=== PATIENT | male | born 1970 | race Caucasian/White ===

== ENCOUNTER 2024-03-16 16:10 | Inpatient (IN) ==
[2024-03-16] MEDS: ZOSYN VIAL 3.375 GRAMS 3.375 G in NS 100 ML IV 100 ML IV SCH ×2 (17:52→21:26)
[2024-03-16] MEDS ORDERED: ZOFRAN INJ 4 MG VIAL IVP PRN (17:57)
[2024-03-16 18:14] VITALS: BMI 27.6
[2024-03-16] MEDS: D5 1/2 NS 1,000 ML 1,000 ML IV SCH (18:31)
[2024-03-16 20:07] LABS: BLOOD UREA NITROGEN 10 mg/dL (7-18); CALCIUM 8.3 mg/dL (8.5-10.1); CARBON DIOXIDE 23.5 mmol/L (21-32); CHLORIDE 101 mmol/L (98-107); COR NA(FOR HYPERGLY) 140 mmol/L (136-145); CREATININE 1.26 mg/dL (0.70-1.30); GLUCOSE 167 mg/dL (65-99); POTASSIUM 3.9 mmol/L (3.5-5.1); SODIUM 138 mmol/L (136-145); eGFR NON BLACK RACES > 60 (>60)
[2024-03-16] MEDS ORDERED: ZOSYN VIAL 3.375 GRAMS 3.375 G in NS 100 ML IV 100 ML IV ONE (21:00)
[2024-03-16] MEDS: DILAUDID INJ IVP PRN (21:16)
[2024-03-16] MEDS: NS 250 ML IV 25 ML IV PRN (21:19)
--- NOTE | 2024-03-16 21:56 | EKG ---
Test Reason : Surgical Clearance Blood Pressure : */* mmHG Vent. Rate : 77 BPM Atrial Rate : 77 BPM P-R Int : 146 ms QRS Dur : 90 ms QT Int : 356 ms P-R-T Axes : 49 8 8 degrees QTc Int : 402 ms Normal sinus rhythm Normal ECG No previous ECGs available Confirmed by Imtiaz Hidalgo ([id number]) on 03/17/2024 10:16:24 AM Referred By: Confirmed By: Imtiaz Hidalgo
[2024-03-17] MEDS: HIBICLENS WASH EXT ONE (05:54)
[2024-03-17] MEDS: NOZIN NASAL SANITIZER TP ONE (06:16)
[2024-03-17] MEDS: ZOSYN VIAL 3.375 GRAMS IV ONE (07:19)
[2024-03-17] MEDS: NS 100 ML IV 100 ML ONE ×2 (07:19→10:56)
[2024-03-17] MEDS: PROTONIX INJ 40 MG VIAL IVP ONE (09:02)
[2024-03-17 09:03] LABS: BASOPHILS % (AUTO) 0.1 % (0.2-1.0); EOSINOPHILS % (AUTO) 0.5 % (0.9-2.9); HEMATOCRIT 42.5 % (42.0-54.0); HEMOGLOBIN 14.3 g/dL (13.5-18.0); LYMPHOCYTES # (AUTO) 1.3 X10^3/uL (1.3-2.9); LYMPHOCYTES % (AUTO) 14.2 % (21.0-51.0); MEAN CORPUSCULAR HEMOGLOBIN 29.3 pg (27.0-34.0); MEAN CORPUSCULAR HGB CONC 33.6 g/dL (33.0-35.0); MEAN CORPUSCULAR VOLUME 87.3 fL (80.0-100.0); MONOCYTES % (AUTO) 11.2 % (0.0-13.0); NEUTROPHILS # (AUTO) 6.7 x10^3/uL (2.2-4.8); PLATELET COUNT 136 X10^3/uL (150.0-450.0); RED BLOOD COUNT 4.86 X10^6/uL (4.7-6.0); RED CELL DISTRIBUTION WIDTH 13.7 % (11.6-16.5)
[2024-03-17 09:11] LABS: ALANINE AMINOTRANSFERASE 104 Units/L (12-78); ALBUMIN 3.2 g/dL (3.4-5.0); ALKALINE PHOSPHATASE 64 Units/L (46-116); ASPARTATE AMINO TRANSFERASE 60 Units/L (15-37); BLOOD UREA NITROGEN 8 mg/dL (7-18); CALCIUM 8.2 mg/dL (8.5-10.1); CARBON DIOXIDE 25.4 mmol/L (21-32); CHLORIDE 105 mmol/L (98-107); COR CA(FOR HYPOALB) 8.8 mg/dL (8.5-10.1); COR NA(FOR HYPERGLY) 138 mmol/L (136-145); GLUCOSE 130 mg/dL (65-99); POTASSIUM 3.7 mmol/L (3.5-5.1); SODIUM 137 mmol/L (136-145); TOTAL PROTEIN 6.9 g/dL (6.4-8.2); eGFR NON BLACK RACES > 60 (>60)
[2024-03-17] MEDS: BACTROBAN TOPICAL OINT ONE (09:32)
[2024-03-17] MEDS: LR 1,000 ML IV 1,000 ML IV ONE (10:56)
[2024-03-17] MEDS: ANCEF VIAL 1 GRAM ONE (10:56)
[2024-03-17] MEDS: PRECEDEX INJ VIAL ONE (11:03)
[2024-03-17] MEDS ORDERED: ULTANE GAS IN ONE (11:03)
[2024-03-17] MEDS: DILAUDID INJ ONE (11:03)
[2024-03-17] MEDS: ZOFRAN INJ 4 MG VIAL ONE (11:03)
[2024-03-17] MEDS: PEPCID 20 MG VIAL ONE (11:03)
[2024-03-17] MEDS: VERSED ONE (11:03)
[2024-03-17] MEDS: DIPRIVAN VIAL 20 ML ONE (11:03)
[2024-03-17] MEDS: ZEMURON 100 MG VIAL ONE (11:03)
[2024-03-17] MEDS: DECADRON INJ ONE (11:03)
[2024-03-17] MEDS: ROBINUL ONE (11:03)
[2024-03-17] MEDS: NEO-SYNEPHRINE INJ ONE (11:16)
[2024-03-17] MEDS: BRIDION ONE (12:06)
[2024-03-17] MEDS ORDERED: REGLAN INJ 10 MG VIAL IVP PRN (12:39)
[2024-03-17] MEDS ORDERED: DILAUDID INJ IVP PRN (12:39)
[2024-03-17] MEDS ORDERED: BARHEMSYS INJ IVP PRN (12:39)
[2024-03-17] MEDS ORDERED: BENADRYL INJ 50 MG VIAL IVP PRN (12:39)
[2024-03-17] MEDS ORDERED: ZOFRAN INJ 4 MG VIAL IVP PRN (12:39)
[2024-03-18 00:30] VITALS: RESP 20
[2024-03-18 04:24] VITALS: TEMP 98.4
[2024-03-18 06:23] LABS: BASOPHILS % (AUTO) 0.4 % (0.2-1.0); EOSINOPHILS % (AUTO) 0.1 % (0.9-2.9); HEMATOCRIT 39.2 % (42.0-54.0); HEMOGLOBIN 12.9 g/dL (13.5-18.0); LYMPHOCYTES # (AUTO) 1.6 X10^3/uL (1.3-2.9); LYMPHOCYTES % (AUTO) 15.9 % (21.0-51.0); MEAN CORPUSCULAR HGB CONC 32.9 g/dL (33.0-35.0); MEAN CORPUSCULAR VOLUME 87.9 fL (80.0-100.0); MONOCYTES # (AUTO) 1.2 x10^3/uL (0.3-0.8); MONOCYTES % (AUTO) 11.5 % (0.0-13.0); NEUTROPHILS # (AUTO) 7.4 x10^3/uL (2.2-4.8); NEUTROPHILS % (AUTO) 72.1 % (42.0-75.0); PLATELET COUNT 126 X10^3/uL (150.0-450.0); RED BLOOD COUNT 4.46 X10^6/uL (4.7-6.0); RED CELL DISTRIBUTION WIDTH 13.6 % (11.6-16.5); WHITE BLOOD COUNT 10.3 X10^3/uL (3.6-10.0)
[2024-03-18 06:34] LABS: ALANINE AMINOTRANSFERASE 93 Units/L (12-78); ALKALINE PHOSPHATASE 55 Units/L (46-116); ASPARTATE AMINO TRANSFERASE 49 Units/L (15-37); BLOOD UREA NITROGEN 9 mg/dL (7-18); CHLORIDE 105 mmol/L (98-107); COR CA(FOR HYPOALB) 8.8 mg/dL (8.5-10.1); COR NA(FOR HYPERGLY) 142 mmol/L (136-145); CREATININE 1.09 mg/dL (0.70-1.30); GLUCOSE 118 mg/dL (65-99); POTASSIUM 3.7 mmol/L (3.5-5.1); SODIUM 142 mmol/L (136-145); TOTAL PROTEIN 6.5 g/dL (6.4-8.2); eGFR NON BLACK RACES > 60 (>60)
[2024-03-18] MEDS ORDERED: CONSULT PHARMACY - POTASSIUM & MAGNESIUM XX SCH (07:00)
--- NOTE | 2024-03-18 08:25 | RAD ---
EXAM:CHEST, 1 VIEWHISTORY:SURG CLEARANCE- KRISTEL ;COMPARISON:03/16/2024FINDINGS:The lungs are clear. No pneumothorax or effusion.Heart size is normal. The aorta is tortuous; this can be seen with aging, hypertension, or atherosclerosis.The bones are unremarkable.IMPRESSION:1. No significant abnormalityTHIS IS AN ELECTRONICALLY VERIFIED FINAL REPORT03/18/2024 8:22 AM - Electronically signed by Juan M Irizarry MD
[2024-03-18] MEDS: K-DUR TAB 20 MEQ PO SCH (09:04)
[2024-03-18 09:19] VITALS: BP 137/77; PULSE 75; O2SAT 98
== END 2024-03-18 09:54 | disposition home or self-care (01) | DRG 418 ==
LOC: MED/SURG 16:10
PROVIDERS: ADMIT Surgery; ATTEND Surgery
DX: K82.1 Hydrops of gallbladder; F41.8 Other specified anxiety disorders; K81.0 Acute cholecystitis; Z01.810 Encounter for preprocedural cardiovascular examination; E78.2 Mixed hyperlipidemia; E11.65 Type 2 diabetes mellitus with hyperglycemia; K21.9 Gastro-esophageal reflux disease without esophagitis